=== PATIENT | male | born 1995 | race Caucasian/White ===

== ENCOUNTER → 2020-05-28 | Outpatient (CLI) | payer OTHER | LOC: MHCPAIN 09:22 | DX: M47.817 Spondylosis without myelopathy or radiculopathy, lumbosacral region (principal); M53.3 Sacrococcygeal disorders, not elsewhere classified; M54.16 Radiculopathy, lumbar region; G89.29 Other chronic pain | CPT/HCPCS: G0463 ==

== ENCOUNTER → 2020-05-31 | Outpatient (CLI) | payer OTHER | LOC: MHCPAIN 09:16 | DX: M47.817 Spondylosis without myelopathy or radiculopathy, lumbosacral region (principal); M54.16 Radiculopathy, lumbar region | CPT/HCPCS: J1100; Q9967 ==

== ENCOUNTER → 2020-06-13 | Outpatient (CLI) | payer OTHER | LOC: MHCPAIN 13:30 | DX: M47.817 Spondylosis without myelopathy or radiculopathy, lumbosacral region (principal); M54.5 Low back pain; M53.3 Sacrococcygeal disorders, not elsewhere classified; G89.29 Other chronic pain | CPT/HCPCS: G0463 ==

== ENCOUNTER → 2020-06-14 | Outpatient (CLI) | payer OTHER | LOC: MHCPAIN 08:07 | DX: M47.817 Spondylosis without myelopathy or radiculopathy, lumbosacral region (principal); M54.5 Low back pain ==

== ENCOUNTER → 2020-07-12 | Outpatient (CLI) | payer OTHER | LOC: MHCPAIN 08:12 | DX: M47.817 Spondylosis without myelopathy or radiculopathy, lumbosacral region (principal); M54.5 Low back pain | CPT/HCPCS: G0463 ==

== ENCOUNTER → 2020-08-02 | Outpatient (CLI) | payer OTHER | LOC: MHCPAIN 09:39 | DX: M47.817 Spondylosis without myelopathy or radiculopathy, lumbosacral region (principal); M54.5 Low back pain | CPT/HCPCS: G0463; J1100; J2250; J3010 ==

== ENCOUNTER → 2020-08-28 | Outpatient (CLI) | payer OTHER | LOC: MHCPAIN 07:51 | DX: M47.816 Spondylosis without myelopathy or radiculopathy, lumbar region (principal); M54.5 Low back pain; G89.29 Other chronic pain; M53.3 Sacrococcygeal disorders, not elsewhere classified | CPT/HCPCS: G0463 ==